=== PATIENT | male | born 1965 | race American Indian/Alaskan Native ===

== ENCOUNTER 2019-04-27 09:54 | Outpatient (CLI) | payer BC ==
--- NOTE | 2019-04-27 14:04 | Nuclear Medicine Report ---
NUCLEAR MEDICINE BONE SCAN, WHOLE BODY INDICATION: PROSTATE CANCER(C61). TECHNIQUE: 25 mCi of Tc-99m MDP were injected IV. Whole body images were obtained. Oblique images of the pelvis were also obtained. COMPARISON: No relevant prior imaging study available. FINDINGS: Skeletal Structures: Fairly symmetric, likely degenerative uptake is present involving the shoulders , wrists and ankles.. Skeletal Lesions: There is a questionable subtle focus of increased radiotracer uptake in the left po sterior eighth rib. There is also subtle focal uptake near the T4 or T5 level. Subtle focal uptake in the lumbar region appears to be secondary to facet arthropathy at L4-5 and L5-S1. No other areas of suspicious uptake.. Soft Tissues: Normal. Kidneys: Normal, symmetric activity. Additional Findings: None. IMPRESSION: Questionable subtle abnormal uptake in the left posterior eighth rib and T4 or T5 vertebral body. Co nsider radiographic correlation.. Signer Name: Ambrosio Crystal Jr, MD Signed: 04/27/2019 2:00 PM Workstation Name: [id number]
== END 2019-04-27 09:55 | disposition home or self-care (01) ==
LOC: NM 09:54
PROVIDERS: ATTEND Urology
DX: C61 Malignant neoplasm of prostate (principal)
CPT/HCPCS: 78306; A9503

== ENCOUNTER 2019-05-02 09:58 | Outpatient (CLI) | payer BC ==
--- NOTE | 2019-05-02 11:20 | XRay Report ---
Left rib series 3 views Indication: C61) PROSTATE CANCER and abnormal bone scan with subtle increased activity in the left eighth posteri or rib. Findings: A relatively smooth expansile lesion of the left eighth posterior rib is probably an old healed fract ure. CT may be more conclusive if there are no suspicious findings on CT. Signer Name: Laz Andrade MD Signed: 05/02/2019 11:16 AM Workstation Name: [id number]
== END 2019-05-02 09:59 | disposition home or self-care (01) ==
LOC: XRAY 09:58
PROVIDERS: ATTEND Urology
DX: C61 Malignant neoplasm of prostate (principal)

== ENCOUNTER 2019-06-28 05:42 | Day surgery (SDC) | payer BC ==
[~2019-06-28 05:42] MED LIST: LACTATED RINGERS 1,000 ML IV SCH
[2019-06-28] MEDS ORDERED: VERSED IV NR (06:00)
[2019-06-28] MEDS ORDERED: ANCEF/STERILE WATER 2 GM/20 ML 2 GM/20 ML SYRINGE IV ONE (06:30)
--- NOTE | 2019-06-28 07:18 | Anesthesia Day of Surgery ---
Anesthesia Day of Surgery - Day of Surgery Patient Examined: Yes Patient H&P Reviewed: Yes Patient is NPO: Yes
--- NOTE | 2019-06-28 07:18 | Anesthesia Consultation ---
Anesthesia Consult and Med Hx Date of service: 06/28/19 - Airway Anesthetic Teeth Evaluation: Poor (denies loose teeth) ROM Head & Neck: Adequate Mental/Hyoid Distance: Adequate Mallampati Class: Class II Intubation Access Assessment: Probably Good - Pulmonary Exam CTA: Yes - Cardiac Exam Cardiac Exam: RRR - Pre-Operative Health Status ASA Pre-Surgery Classification: ASA3 Proposed Anesthetic Plan: MAC - Pulmonary Hx Smoking: Yes COPD: Yes (no inhaler use) - Cardiovascular System Hx Hypertension: Yes Hx Heart Attack/AMI: No - Central Nervous System CVA: No Hx Psychiatric Problems: Yes - Gastrointestinal Hx Gastroesophageal Reflux Disease: No - Endocrine Hx Renal Disease: No Hx Liver Disease: No Hx Insulin Dependent Diabetes: No Hx Non-Insulin Dependent Diabetes: No Hx Thyroid Disease: No - Other Systems Hx Cancer: Yes (prostate Ca) - Additional Comments Anesthesia Medical History Comments: No hx anesthetic complications.
[2019-06-28] MEDS ORDERED: XYLOCAINE 1% 20 mL ONE (07:27)
[2019-06-28] MEDS ORDERED: MARCAINE 0.25% INFILTRATI ONE ×3 (07:27→07:55)
[2019-06-28] MEDS ORDERED: DIPRIVAN 10 MG/ML IV ONE ×2 (07:28→08:21)
[2019-06-28] MEDS ORDERED: XYLOCAINE MPF 2% ONE (07:28)
[2019-06-28] MEDS ORDERED: VERSED ONE ×2 (07:42→08:20)
[2019-06-28] MEDS ORDERED: KETAMINE 50 MG/ML-WATER SYRING ONE (07:42)
[2019-06-28] MEDS ORDERED: XYLOCAINE 1% 20 mL INFILTRATI ONE ×2 (07:55)
[2019-06-28] MEDS ORDERED: SUBLIMAZE IV PRN (08:00)
--- NOTE | 2019-06-28 08:40 | Short Stay Summary ---
Short Stay Documentation Date of service: 06/28/19 - History Principal diagnosis: cyst of posterior neck - Allergies and Medications Current Medications: Allergies lisinopril Adverse Reaction (Severe, Unverified 06/28/19 07:09) Anaphylaxis Home Medications Medication Instructions Recorded Confirmed Last Taken Type Eligard IM [id number] 06/24/19 06/24/19 10:00 History amLODIPine 10 mg PO DAILY 06/24/19 06/28/19 06/27/19 08:00 History Active Medications Fentanyl (Sublimaze) 50 mcg IV Q5MIN PRN PRN Reason: Pain , Severe (7-10) Stop: 06/28/19 14:00 Lactated Ringer's (Lactated Ringers) 1,000 mls @ 100 mls/hr IV DIRECT ESTIVEN Last Admin: 06/28/19 06:50 Dose: 100 mls/hr Documented by: Midazolam HCl (Versed) 2 mg IV PREOP NR Stop: 06/28/19 23:59 Last Admin: 06/28/19 07:20 Dose: 2 mg Documented by: - Brief post op/procedure progress note Date of procedure: 06/28/19 Pre-op diagnosis: cyst of posterior neck Post-op diagnosis: same Procedure: excision of cyst of posterior neck Anesthesia: MAC, local Findings: 3 cm inflamed cyst of posterior neck with thickened wall and surrounding tissue. Surgeon: OMAR PORTER Estimated blood loss: minimal Pathology: list (cyst of posterior neck) Specimen disposition: to lab Condition: stable - Hospital course Hospital course: Pt observed in PACU and discharged to home in stable condition when criteria met - Disposition Condition at discharge: Good Disposition: DC-01 TO HOME OR SELFCARE Short Stay Discharge Plan Activity: no restrictions Diet: regular Wound: per your surgeon's advice (Leave outer dressing in place for 2-3 days, then may remove and leave uncovered) Additional Instructions: see printed discharge instructions Follow up with: ALISHA KIM MD [Primary Care Provider] - 7 Days OMAR PORTER DO [Staff Physician] - 7 Days Prescriptions: cephALEXin [Keflex] 500 mg PO Q6HR #28 capsule HYDROcodone/APAP 5-325 [[place] 5/325] 1 each PO Q6HR PRN #8 tablet PRN Reason: Pain
[2019-06-28] MEDS ORDERED: NORCO 5/325 PO PRN (09:30)
[2019-06-28 09:55] VITALS: BP 125/92
--- NOTE | 2019-06-28 11:47 | Post Anesthesia Evaluation ---
- Post Anesthesia Evaluation Patient Participated: Yes Airway Patent: Yes Stable Respiratory Function: Yes Nausea/Vomiting: No Temp > 96.8F: Yes Pain Manageable: Yes Adequeate Hydration: Yes Anesthesia Complications: No Block Receding Appropriately: Not Applicable Patient on Ventilator: No
--- NOTE | 2019-06-30 12:25 | Operative Report ---
PREOPERATIVE DIAGNOSIS: Cyst of posterior neck. POSTOPERATIVE DIAGNOSIS: Cyst of posterior neck. PROCEDURE: Excision of cyst of posterior neck. ANESTHESIA: MAC local. FINDINGS: A 3 cm inflamed cyst of posterior neck with thickened wall and surrounding tissue. SURGEON: Evelin Quigley DO. ESTIMATED BLOOD LOSS: Minimal. PATHOLOGY: Cyst of posterior neck. SPECIMEN DISPOSITION: To lab. CONDITION ON DISPOSITION: The patient is stable to PACU. HISTORY OF PRESENT ILLNESS AND INDICATIONS: The patient is a 54-year-old male who presented to the surgery clinic for evaluation of a posterior neck mass. He states that the mass had been there for quite some time and it was bothersome. Excision was recommended. All risks, benefits and alternatives to surgery were discussed with the patient and questions answered. Consent was obtained. PROCEDURE IN DETAIL: The patient was identified in the preoperative area and taken back to the operating room and placed on the operating table in prone position. The neck hairs were clipped and the posterior neck was prepped and draped in the usual sterile fashion. A timeout performed. Local anesthetic was then infiltrated into the skin at the intended incision site. An elliptical incision was made using a 15 blade over the area of the cyst. Dissection was carried down through the skin using the 15 blade. Once the subcutaneous tissue was identified, dissection was carried out with electrocautery. The cyst wall was very thickened and the gregorio-cyst tissue was also inflamed and thickened. The cyst was circumferentially dissected free from the surrounding tissue using a combination of electrocautery and blunt dissection using a hemostat. Once healthy normal subcutaneous tissue was identified, the cyst was transected at its base using electrocautery. The cyst measured approximately 3 cm. It was passed off the table as specimen. Wound was then checked for hemostasis and irrigated. Hemostasis was carefully achieved using electrocautery and pressure. Once hemostasis was satisfactory, the incision was closed using interrupted 3-0 nylon vertical mattress sutures. A 4 x 4 fluff gauze and Elastoplast tape was applied to the area of the compression dressing. At the end of the case, all sponge, instrument, sharp counts were correct x 2. The patient tolerated the procedure well and was awoken from anesthesia and taken to PACU in stable condition. JOB# [id number] NK/YVAN
== END 2019-06-28 10:00 | disposition home or self-care (01) ==
LOC: OR 05:42
PROVIDERS: ATTEND Surgery
DX: L72.0 Epidermal cyst (principal); R22.1 Localized swelling, mass and lump, neck; I10 Essential (primary) hypertension; J43.9 Emphysema, unspecified; M06.9 Rheumatoid arthritis, unspecified; F32.9 Major depressive disorder, single episode, unspecified; Z85.46 Personal history of malignant neoplasm of prostate; Z87.891 Personal history of nicotine dependence; Z79.899 Other long term (current) drug therapy; Z88.8 Allergy status to other drugs, medicaments and biological substances; Z72.89 Other problems related to lifestyle; Z98.890 Other specified postprocedural states
CPT/HCPCS: 11423; 88304; J0690; J2250; J2704; J3010; J7120; 88307

== ENCOUNTER 2019-08-24 02:00 | Emergency (ER) | payer BC ==
[2019-08-24 03:20] LABS: Basophils # (Auto) 0.1 K/mm3 (0.0-0.1); Basophils % (Auto) 0.9 % (0.0-1.8); Eosinophils # (Auto) 0.1 K/mm3 (0.0-0.4); Eosinophils % (Auto) 0.9 % (0.0-4.3); Hematocrit 35.1 % (35.5-45.6); Hemoglobin 11.8 gm/dl (11.8-15.2); Lymphocytes # (Auto) 1.2 K/mm3 (1.2-5.4); Lymphocytes % (Auto) 18.6 % (13.4-35.0); Mean Corpuscular HGB Conc 34 % (32-34); Mean Corpuscular Volume 89 fl (84-94); Monocytes # (Auto) 0.3 K/mm3 (0.0-0.8); Monocytes % (Auto) 5.5 % (0.0-7.3); Platelet Count 403 K/mm3 (140-440); Red Blood Count 3.96 M/mm3 (3.65-5.03); Red Cell Distribution Width 14.1 % (13.2-15.2)
--- NOTE | 2019-08-24 03:24 | Cat Scan Report ---
CT ABDOMEN AND PELVIS WITHOUT CONTRAST INDICATION: Patient complains of abd pain w/ nausea and vomiting.. COMPARISON: No relevant prior imaging study available. TECHNIQUE: Axial, coronal and sagittal CT imaging of the abdomen and pelvis was performed without co ntrast. Lack of intravenous contrast limits evaluation of the vascular and solid organs. All CT sca ns at this location are performed using CT dose reduction for ALARA by means of automated exposure co ntrol. FINDINGS: LOWER CHEST: No significant abnormality. LIVER: No significant abnormality. BILIARY: No significant abnormality. PANCREAS: No significant abnormality. SPLEEN: No significant abnormality. ADRENALS: Bilateral adrenal hyperplasia is noted without a nodule or mass. KIDNEYS AND URETERS: A right ureteral stent is in good position. There is nonspecific mild bilateral perinephric fat stranding. No additional significant abnormality. GI TRACT: No significant abnormality of the stomach or small bowel. There is generalized colonic dive rticulosis without evidence of diverticulitis. Unremarkable appendix. PERITONEUM: No free fluid. No free air. No fluid collection. LYMPH NODES: Bilateral iliac chain adenopathy is seen with enlarged nodes throughout the course of th e abdominal aorta. Retrocrural adenopathy is also seen. A traveling sales representative right retrocrural node measu res 2.6 cm in short axis dimension on image 32 of series 2. VASCULATURE: No significant abnormality. URINARY BLADDER: Thickening of the bladder wall is likely related to underdistention. No additional s ignificant abnormality. REPRODUCTIVE ORGANS: The prostate gland is enlarged without a distinct mass. ADDITIONAL FINDINGS: None. SKELETAL SYSTEM: Degenerative changes are seen along the spine and SI joints without an acute abnorma lity or aggressive appearing lesion. IMPRESSION: 1. Generalized adenopathy throughout the abdomen and pelvis is consistent with malignancy until prove n otherwise. Please correlate with the clinical findings and the patient's history. 2. No other acute abnormality of the abdomen or pelvis. 3. Additional findings as above. Signer Name: Josue Lindo MD Signed: 08/24/2019 3:19 AM Workstation Name: [id number]
[2019-08-24 03:42] LABS: BUN/Creatinine Ratio 9; Blood Urea Nitrogen 12 mg/dL (9-20); Calcium 9.6 mg/dL (8.4-10.2); Hemolysis Index 16
[2019-08-24] MEDS ORDERED: ONDANSETRON 4 MG/2 ML INJ IV ONE (04:09)
[2019-08-24] MEDS ORDERED: fentaNYL 100 MCG/2 ML INJ IV ONE (04:09)
[2019-08-24 04:36] LABS: Bacteria,Urine 1+ /HPF (Negative); Bilirubin,Urine NEG (Negative); Blood,Urine SM (Negative); Color,Urine Yellow (Yellow); Protein,Urine <15 mg/dL mg/dL (Negative); Urobilinogen,Urine < 2.0 mg/dL (<2.0)
--- NOTE | 2019-08-24 05:11 | Emergency Department Report ---
ED General Adult HPI - General Chief complaint: Abdominal Pain Stated complaint: SEVERE ABDOMINAL PAIN/VOMITING Time Seen by Provider: 08/24/19 04:27 Source: patient Mode of arrival: Ambulatory Limitations: No Limitations - History of Present Illness Initial comments: 54-year-old -Indian male patient with history of prostate cancer complains of right lower and right side abdominal pain times last night and one episode of vomiting. She follows with Dr. Hurtado, urology. He states he had a ureteral stent placed on 08/04/19 due to his ureter being obstructed by the prostate cancer. He denies any dysuria, hematuria, urinary frequency, hem atemesis/coffee ground emesis, or constipation/hematochezia/melena. He states his pain was a 9/10 in severity but has resolved since getting medication here in the ED. Radiation: flank Severity scale (0 -10): 9 Treatments Prior to Arrival: none - Related Data Home Medications Medication Instructions Recorded Confirmed Last Taken Eligard 1 dose IM [id number] 06/24/19 07/27/19 06/24/19 10:00 amLODIPine 10 mg PO DAILY 06/24/19 08/04/19 08/04/19 09:00 Previous Rx's Medication Instructions Recorded Last Taken Type Acetaminophen/Codeine [Tylenol 1 tab PO Q6H PRN #10 tab 08/24/19 Unknown Rx /Codeine # 3 tab] Ondansetron [Zofran Odt] 4 mg PO Q8HR PRN #15 tab.rapdis 08/24/19 Unknown Rx Allergies Allergy/AdvReac Type Severity Reaction Status Date / Time lisinopril AdvReac Severe Anaphylaxis Verified 07/27/19 16:04 ED Review of Systems ROS: Stated complaint: SEVERE ABDOMINAL PAIN/VOMITING Other details as noted in HPI Constitutional: denies: chills, fever Respiratory: denies: cough, shortness of breath Cardiovascular: denies: chest pain Gastrointestinal: abdominal pain, nausea, vomiting. denies: diarrhea, constipation, hematemesis, melena, hematochezia Genitourinary: denies: urgency, dysuria, frequency, hematuria, discharge, testi cular pain Skin: denies: rash, lesions Neurological: denies: headache Hematological/Lymphatic: denies: easy bleeding ED Past Medical Hx - Past Medical History Previous Medical History?: Yes Hx Hypertension: Yes (X 1-2 YRS) Hx Heart Attack/AMI: No Hx Diabetes: No Hx Liver Disease: No Hx Renal Disease: No Hx Arthritis: Yes (RT PINKY) Hx COPD: Yes (NO MEDS) Hx Tuberculosis: No Hx HIV: No - Surgical History Additional Surgical History: ureteral stent placed 03/2019. ureteral stent replacement 08/04/2019 - Social History Smoking Status: Never Smoker Substance Use Type: None - Medications Home Medications: Home Medications Medication Instructions Recorded Confirmed Last Taken Type Eligard 1 dose IM [id number] 06/24/19 07/27/19 06/24/19 10:00 History amLODIPine 10 mg PO DAILY 06/24/19 08/04/19 08/04/19 09:00 History Acetaminophen/Codeine [Tylenol 1 tab PO Q6H PRN #10 tab 08/24/19 Unknown Rx /Codeine # 3 tab] Ondansetron [Zofran Odt] 4 mg PO Q8HR PRN #15 tab.rapdis 08/24/19 Unknown Rx ED Physical Exam - General Limitations: No Limitations General appearance: alert, in no apparent distress - Head Head exam: Present: atraumatic, normocephalic - Eye Eye exam: Present: normal appearance - Neck Neck exam: Present: full ROM - Respiratory Respiratory exam: Present: normal lung sounds bilaterally. Absent: respiratory distress - Cardiovascular Cardiovascular Exam: Present: regular rate, normal rhythm, normal heart sounds - GI/Abdominal GI/Abdominal exam: Present: soft, normal bowel sounds. Absent: distended, tenderness, guarding, rebound, rigid - Back Exam Back exam: Present: normal inspection. Absent: CVA tenderness (R), CVA tenderness (L) - Neurological Exam Neurological exam: Present: alert, oriented X3 - Psychiatric Psychiatric exam: Present: normal affect, normal mood - Skin Skin exam: Present: warm, dry, intact, normal color. Absent: rash ED Course Vital Signs 08/24/19 08/24/19 08/24/19 02:04 03:14 03:16 Temperature 98.7 F Pulse Rate 88 Respiratory 18 Rate Blood Pressure 133/83 O2 Sat by Pulse 96 83 L 97 Oximetry 08/24/19 08/24/19 08/24/19 03:30 03:45 04:02 Temperature Pulse Rate Respiratory Rate Blood Pressure 129/83 127/89 122/86 O2 Sat by Pulse 95 98 99 Oximetry ED Medical Decision Making - Lab Data Result diagrams: 08/24/19 02:46 08/24/19 02:46 Lab Results 08/24/19 08/24/19 08/24/19 Range/Units 02:46 02:46 04:09 WBC 6.2 (4.5-11.0) K/mm3 RBC 3.96 (3.65-5.03) M/mm3 Hgb 11.8 (11.8-15.2) gm/dl Hct 35.1 L (35.5-45.6) % MCV 89 (84-94) fl MCH 30 (28-32) pg MCHC 34 (32-34) % RDW 14.1 (13.2-15.2) % Plt Count 403 (140-440) K/mm3 Lymph % (Auto) 18.6 (13.4-35.0) % [place] % (Auto) 5.5 (0.0-7.3) % Eos % (Auto) 0.9 (0.0-4.3) % Baso % (Auto) 0.9 (0.0-1.8) % Lymph # 1.2 (1.2-5.4) K/mm3 [place] # 0.3 (0.0-0.8) K/mm3 Eos # 0.1 (0.0-0.4) K/mm3 Baso # 0.1 (0.0-0.1) K/mm3 Seg Neutrophils % 74.1 H (40.0-70.0) % Seg Neutrophils # 4.6 (1.8-7.7) K/mm3 Sodium 136 L (137-145) mmol/L Potassium 4.3 (3.6-5.0) mmol/L Chloride 97.9 L (98-107) mmol/L Carbon Dioxide 24 (22-30) mmol/L Anion Gap 18 mmol/L BUN 12 (9-20) mg/dL Creatinine 1.4 (0.8-1.5) mg/dL Estimated GFR > 60 ml/min BUN/Creatinine Ratio 9 % Glucose 123 H (75-100) mg/dL Calcium 9.6 (8.4-10.2) mg/dL Urine Color Yellow (Yellow) Urine Turbidity Clear (Clear) Urine pH 6.0 (5.0-7.0) Ur Specific [place] 1.016 (1.003-1.030) Urine Protein <15 mg/dl (Negative) mg/dL Urine Glucose (UA) Neg (Negative) mg/dL Urine Ketones Neg (Negative) mg/dL Urine Blood Sm (Negative) Urine Nitrite Neg (Negative) Urine Bilirubin Neg (Negative) Urine Urobilinogen < 2.0 (<2.0) mg/dL Ur Leukocyte Esterase Sm (Negative) Urine WBC (Auto) 3.0 (0.0-6.0) /HPF Urine RBC (Auto) 26.0 (0.0-6.0) /HPF U Epithel Cells (Auto) < 1.0 (0-13.0) /HPF Urine Bacteria (Auto) 1+ (Negative) /HPF - Radiology Data Radiology results: report reviewed CT ABDOMEN AND PELVIS WITHOUT CONTRAST INDICATION: Patient complains of abd pain w/ nausea and vomiting.. COMPARISON: No relevant prior imaging study available. TECHNIQUE: Axial, coronal and sagittal CT imaging of the abdomen and pelvis was performed without contrast. Lack of intravenous contrast limits evaluation of the vascular and solid organs. All CT scans at this location are performed using CT dose reduction for ALARA by means of automated exposure control. FINDINGS: LOWER CHEST: No significant abnormality. LIVER: No significant abnormality. BILIARY: No significant abnormality. PANCREAS: No significant abnormality. SPLEEN: No significant abnormality. ADRENALS: Bilateral adrenal hyperplasia is noted without a nodule or mass. KIDNEYS AND URETERS: A right ureteral stent is in good position. There is nonspecific mild bilateral perinephric fat stranding. No additional significant abnormality. GI TRACT: No significant abnormality of the stomach or small bowel. There is generalized colonic diverticulosis without evidence of diverticulitis. Unremarkable appendix. PERITONEUM: No free fluid. No free air. No fluid collection. LYMPH NODES: Bilateral iliac chain adenopathy is seen with enlarged nodes throughout the course of the abdominal aorta. Retrocrural adenopathy is also seen. A representative personal service right retrocrural node measures 2.6 cm in short axis dimension on image 32 of series 2. VASCULATURE: No significant abnormality. URINARY BLADDER: Thickening of the bladder wall is likely related to underdistention. No additional significant abnormality. REPRODUCTIVE ORGANS: The prostate gland is enlarged without a distinct mass. ADDITIONAL FINDINGS: None. SKELETAL SYSTEM: Degenerative changes are seen along the spine and SI joints without an acute abnormality or aggressive appearing lesion. IMPRESSION: 1. Generalized adenopathy throughout the abdomen and pelvis is consistent with m alignancy until proven otherwise. Please correlate with the clinical findings and the patient's history. 2. No other acute abnormality of the abdomen or pelvis. 3. Additional findings as above. - Medical Decision Making 54-year-old male patient here with complaints of sudden onset of right-sided abdominal pain and one episode of vomiting x last night. Patient was recently diagnosed with prostate cancer and follows with Dr. Hurtado. He had a stent placed in his right ureter on 08/04/19 due to obstruction from his prostate cancer. Patient denies any urinary symptoms. WBCs are normal. Kidney function is normal. CT abdomen shows generalized adenopathy throughout the abdomen consistent with metastasispatient states these findings are not new and that he is already aware of this. No vomiting observed here in ED. Pain is controlled. Patient is afebrile and non-tachycardic .patient is stable for discharge home. Recommend follow-up with Dr. Gonzalez in the morning for further evaluation. Discussed very strict return precautions in detail with patient who states understanding. Critical care attestation.: If time is entered above; I have spent that time in minutes in the direct care of this critically ill patient, excluding procedure time. ED Disposition Clinical Impression: Abdominal pain Qualifiers: Abdominal location: right lower quadrant Qualified Code(s): R10.31 - Right lower quadrant pain Disposition: - TO HOME OR SELFCARE Is pt being admited?: No Condition: Stable Instructions: Abdominal Pain (ED) Additional Instructions: Please follow up with Dr. Gonzalez, your urologist, today for further evaluation. If you experience any new or worsening symptoms, seek immediate emergency care Prescriptions: Acetaminophen/Codeine [Tylenol /Codeine # 3 tab] 1 tab PO Q6H PRN #10 tab PRN Reason: Pain , Severe (7-10) Ondansetron [Zofran Odt] 4 mg PO Q8HR PRN #15 tab.rapdis PRN Reason: Nausea
[2019-08-24] MEDS ORDERED: oxyCODONE /ACETAMINOPHEN 5-325MG TAB PO ONE (05:25)
[2019-08-24 06:59] VITALS: BP 120/74
== END 2019-08-24 07:02 | disposition home or self-care (01) ==
LOC: ED 02:00
DX: R10.31 Right lower quadrant pain (principal); R11.2 Nausea with vomiting, unspecified; I10 Essential (primary) hypertension; M19.90 Unspecified osteoarthritis, unspecified site; Z95.5 Presence of coronary angioplasty implant and graft; Z79.899 Other long term (current) drug therapy; Z88.8 Allergy status to other drugs, medicaments and biological substances
CPT/HCPCS: 36415; 74176; 80048; 81001; 85025; 96374; 96375; 99284; J2405; J3010

== ENCOUNTER 2020-03-28 06:13 | Day surgery (SDC) | payer BC ==
[~2020-03-28 06:13] MED LIST changes: +MIDAZOLAM 2 MG/2 ML INJ IV NR
[2020-03-28] MEDS ORDERED: BACTERIOSTATIC SODIUM CHLORIDE 0.9% 30 ML VIAL INFILTRATI ONE (06:34)
--- NOTE | 2020-03-28 07:23 | Anesthesia Consultation ---
Anesthesia Consult and Med Hx Date of service: 03/28/20 - Airway Anesthetic Teeth Evaluation: Poor (some missing teeth, missing fillings) ROM Head & Neck: Adequate Mental/Hyoid Distance: Adequate Mallampati Class: Class II Intubation Access Assessment: Probably Good - Pre-Operative Health Status ASA Pre-Surgery Classification: ASA3 Proposed Anesthetic Plan: General - Pulmonary Hx Smoking: Yes (PAST SMOKER) COPD: Yes (NO MEDS) Hx Sleep Apnea: No (KENNY PRE SCREEN HIGH RISK.) - Cardiovascular System Hx Hypertension: Yes Hx Heart Attack/AMI: No Hx Angina: No - Central Nervous System CVA: No Hx Back Pain: Yes - Gastrointestinal Hx Gastroesophageal Reflux Disease: No - Endocrine Hx Renal Disease: No Hx Liver Disease: No Hx Insulin Dependent Diabetes: No Hx Non-Insulin Dependent Diabetes: No Hx Thyroid Disease: No - Hematic Hx Anemia: Yes - Other Systems Hx Cancer: Yes (PROSTATE CANCER; CHEMO X 6 / RADIATION 25 WITH SPINE ,THORACIC)
--- NOTE | 2020-03-28 07:23 | Anesthesia Day of Surgery ---
Anesthesia Day of Surgery - Day of Surgery Patient Examined: Yes Patient H&P Reviewed: Yes Patient is NPO: Yes
[2020-03-28] MEDS ORDERED: LIDOCAINE MPF (2%) 20 MG/1 ML VIAL 5 ML ONE (07:27)
[2020-03-28] MEDS ORDERED: propofoL 200 MG/20 ML VIAL IV ONE (07:27)
[2020-03-28] MEDS ORDERED: HYDROmorphone 1 MG/1 ML INJ ONE (07:27)
[2020-03-28] MEDS ORDERED: ceFAZolin/STERILE WATER 2 GM/20 ML SYRINGE IV NR (07:30)
[2020-03-28] MEDS ORDERED: HYDROmorphone 1 MG/1 ML INJ IV PRN (07:32)
[2020-03-28] MEDS ORDERED: ceFAZolin/Water 2 GM/20 ML 2 GM/20 ML SYRINGE IV ONE (07:32)
[2020-03-28] MEDS ORDERED: IOHEXOL 300 MG/ML 100ML IV ONE (08:20)
[2020-03-28] MEDS ORDERED: WATER FOR IRRIG STERILE 2000 ML IR ONE (08:21)
--- NOTE | 2020-03-28 08:43 | Post Operative Note ---
Date of procedure: 03/28/20 Pre-op diagnosis: cap Post-op diagnosis: same Findings: stricture Procedure: cysto stent exchange dviu Anesthesia: ARMANDO Surgeon: SYBIL STEWART Estimated blood loss: none Pathology: none Condition: stable Disposition: PACU
[2020-03-28] MEDS ORDERED: ONDANSETRON 4 MG/2 ML INJ ONE (08:44)
--- NOTE | 2020-03-28 08:45 | Discharge Summary ---
Short Stay Discharge Plan Activity: other (no straining) Weight Bearing Status: Full Weight Bearing Diet: regular, low fat Special Instructions: other (inc fluids ) Durable Medical Equipment Needed Upon Discharge: other (r j stent) Follow up with: ALISHA KIM MD [Primary Care Provider] - 7 Days SYBIL STEWART MD [Staff Physician] - 6 Weeks
--- NOTE | 2020-03-28 09:00 | Operative Report ---
PREOPERATIVE DIAGNOSES: Right hydronephrosis, prostate cancer. POSTOPERATIVE DIAGNOSES: Right hydronephrosis, prostate cancer with urethral stricture. PROCEDURE: Cystoscopy, direct vision urethrotomy, left retrograde and right stent exchange. SURGEON: Geoffrey Hurtado MD ANESTHESIA: General. FINDINGS: This is a gentleman with a narrowed ureter from adenopathy. He now presents for stent exchange. DESCRIPTION OF PROCEDURE: The patient was brought to the operating room and placed on the operating table. Following induction of anesthesia, placed in lithotomy position, prepped and draped in usual sterile fashion. A stricture was noted and this was minimally incised. There was no bleeding. We got into the bladder. Left retrograde showed good drainage with no caliectasis and dilatation with some J hooking. On the right, when we pulled the stent out, we could not get the wire through the stent, so we had to remove the stent and retrograde showed J hooking but we were able to get the wire back in. The patient tolerated the procedure well. A 24 cm x 6-[place] stent was placed, brought to recovery in stable condition. JOB# [id number] MEHREEN/YVAN
[2020-03-28 09:42] VITALS: BP 120/75
--- NOTE | 2020-03-28 10:52 | Post Anesthesia Evaluation ---
- Post Anesthesia Evaluation Patient Participated: Yes Airway Patent: Yes Stable Respiratory Function: Yes Nausea/Vomiting: No Temp > 96.8F: Yes Pain Manageable: Yes Adequeate Hydration: Yes Anesthesia Complications: No
--- NOTE | 2020-03-28 11:14 | Fluoroscopy Report ---
INTRAOPERATIVE FLUOROSCOPY: RETROGRADE UROGRAPHY INDICATION / CLINICAL INFORMATION: HYDRONEPHROSIS. TECHNIQUE: Intraoperative spot images were obtained during the procedure. FINDINGS: Images demonstrate retrograde urography and placement of right ureteral stent. 10 mL Omnipaque 300 us ed. See operative/procedure note by performing physician for full details. Fluoroscopy Time: 1 minute and 44 seconds. Fluoroscopy Images: 4. Signer Name: Vlad Estevez MD Signed: 03/28/2020 11:10 AM Workstation Name: [id number]
== END 2020-03-28 10:00 | disposition home or self-care (01) ==
LOC: OR 06:13
PROVIDERS: ATTEND Urology
DX: N13.30 Unspecified hydronephrosis (principal); C61 Malignant neoplasm of prostate; N35.819 Other urethral stricture, male, unspecified site; Z11.59 Encounter for screening for other viral diseases; I10 Essential (primary) hypertension; J43.9 Emphysema, unspecified; K21.9 Gastro-esophageal reflux disease without esophagitis; M06.9 Rheumatoid arthritis, unspecified; F32.9 Major depressive disorder, single episode, unspecified; D64.9 Anemia, unspecified; Z79.899 Other long term (current) drug therapy; Z87.891 Personal history of nicotine dependence; Z87.440 Personal history of urinary (tract) infections; Z98.890 Other specified postprocedural states; Z88.8 Allergy status to other drugs, medicaments and biological substances
CPT/HCPCS: 52332; 74420; A4217; C1758; C1769; C2617; J0690; J1170; J2250; J2405; J2704; J7120; Q9967; U0003